=== PATIENT | male | born 1950 | race Caucasian/White ===

== ENCOUNTER 2017-01-24 20:53 | Inpatient (IN) | payer MEDICARE, MEDICAID ==
[~2017-01-24] VITALS: Ht 172.7 cm; Wt 78.9 kg
--- NOTE | 2017-01-24 21:00 | NUR ---
PT BROUGHT BY PRIVATE AMBULANCE FROM [facility] ON 5150 FOR GD AND DTO. PT UPON ARRIVAL A/OX3 CALM AND COOPERATIVE AT THIS TIME. NO DISTRESS NOTED
[2017-01-24 21:36] LABS: BASOPHILS % (AUTO) 0.7 % (0.0-2.0); EOSINOPHILS # (AUTO) 0.2 K/uL (0.0-0.7); HEMATOCRIT 32.4 % (36.7-47.1); HEMOGLOBIN 11.3 g/dL (12.5-16.3); LYMPHOCYTES # (AUTO) 1.2 K/uL (20.0-40.0); LYMPHOCYTES % (AUTO) 20.4 % (20.5-51.5); MEAN CORPUSCULAR HEMOGLOBIN 30.9 uug (23.8-33.4); MEAN CORPUSCULAR HGB CONC 35 g/dL (32.5-36.3); MEAN CORPUSCULAR VOLUME 88.9 fL (73.0-96.2); MONOCYTES # (AUTO) 0.8 K/uL (2.0-10.0); MONOCYTES % (AUTO) 12.9 % (0.0-11.0); NEUTROPHILS # (AUTO) 3.7 K/uL (1.8-8.9); PLATELET COUNT (AUTO) 531 K/uL (152-348); RED BLOOD CELL COUNT(AUTO) 3.65 MIL/uL (4.06-5.63); RED CELL DISTRIBUTION WIDTH 12.5 % (12.1-16.2); WHITE BLOOD COUNT (AUTO) 5.9 K/uL (3.6-10.2)
[2017-01-24 21:42] LABS: *BILIRUBIN,URIN NEGATIVE (NEGATIVE); *BLOOD, URINE 1+ (NEGATIVE); *CLARITY,URINE CLEAR (CLEAR); *COLOR,URINE STRAW (YELLOW); *KETONES,URINE NEGATIVE (NEGATIVE); *PROTEIN,URINE TRACE (NEGATIVE); *UROBILINOGEN,URINE 0.2 E.U./dl (NORMAL); LEUKOCYTE ESTERASE ,URINE 1+ (NEGATIVE); NITRITE, URINE NEGATIVE (NEGATIVE); UGLUCOSE NEGATIVE (NEGATIVE)
--- NOTE | 2017-01-24 21:51 | NUR ---
[facility] SERVILLANCE OBTAIN AND SENT TO LAB. BELONGING LIST COMPLETED
[2017-01-24 21:53] LABS: ETHANOL < 3 MG/DL (0-0)
[2017-01-24 21:54] LABS: CALCIUM 8.6 mg/dL (8.5-10.1); CARBON DIOXIDE 28 mmol/L (21-32); CHLORIDE 95 mmol/L (98-107); CREATININE 1.2 mg/dL (0.6-1.3); GFR 61 mL/min (>60); GLUCOSE 104 mg/dL (74-106); SODIUM SERUM 131 mmol/L (136-145); UREA NITROGEN, BLOOD 17 mg/dL (7-18)
[2017-01-24 21:56] LABS: *AMPHETAMINE, URINE NEGATIVE (NEGATIVE); *BARBITURATE, URINE NEGATIVE (NEGATIVE); *CANNABINOID, URINE NEGATIVE (NEGATIVE); *COCCAINE, URINE NEGATIVE (NEGATIVE); *OPIATE, URINE NEGATIVE (NEGATIVE); *PHENCYCLIDINE SCREEN,URINE NEGATIVE (NEGATIVE)
[2017-01-24 21:58] LABS: ALANINE AMINOTRANSFERASE 42 U/L (16-63); ALBUMIN 3.1 g/dL (3.4-5.0); ALKALINE PHOSPHATASE 164 U/L (50-136); ASPARTATE AMINOTRANSFERASE 29 U/L (15-37); BILIRUBIN,DIRECT 0.1 mg/dL (0.0-0.2); BILIRUBIN,TOTAL 0.2 mg/dL (0.2-1.0); TOTAL PROTEIN, SERUM 7.9 g/dL (6.4-8.2)
[2017-01-24 22:01] LABS: ACETAMINOPHEN < 2.0 ug/mL (10-30); BACTERIA,URINE MODERATE /HPF (NONE SEEN)
--- NOTE | 2017-01-24 22:10 | NUR ---
MEDICALLY CLEARED BY DR CORTEZ
[2017-01-24] MEDS ORDERED: IBUPROFEN 600 MG TABLET PO ONE (22:15)
[2017-01-24] MEDS ORDERED: CIPROFLOXACIN HCL 250 MG TABLET PO ONE (22:15)
[2017-01-24 23:10] VITALS: BP 181/104
--- NOTE | 2017-01-24 23:10 | NUR ---
TRANSFERED TO MHU VIA WHEELCHAIR WITH NO DISTRESS NOTED
[2017-01-24] MEDS ORDERED: MAG HYDROX/AL HYDROX/SIMETH 30 ML LIQUID UDC PO PRN (23:30)
[2017-01-24] MEDS ORDERED: TEMAZEPAM 7.5 MG CAPSULE PO PRN (23:30)
[2017-01-24] MEDS ORDERED: MAGNESIUM HYDROXIDE 30 ML LIQUID UDC PO PRN (23:30)
[2017-01-24] MEDS ORDERED: LEVE500T9 PO (23:44)
[2017-01-24] MEDS ORDERED: SENN8.6T6 PO (23:44)
[2017-01-24] MEDS ORDERED: ARIP15TA2 PO (23:44)
[2017-01-24] MEDS ORDERED: BISA5TAB13 RC (23:44)
[2017-01-24] MEDS ORDERED: DONE5TAB34 PO (23:44)
[2017-01-24] MEDS ORDERED: AMLO5TAB2 PO (23:44)
[2017-01-24] MEDS ORDERED: LACT10SO7 PO (23:44)
[2017-01-24] MEDS ORDERED: NEOM500T PO (23:44)
[2017-01-24] MEDS ORDERED: LATA2.5D7 EACHEYE (23:44)
[2017-01-24] MEDS ORDERED: CLON0.1T PO (23:44)
[2017-01-24] MEDS ORDERED: ATEN25TA PO (23:44)
[2017-01-24] MEDS ORDERED: NA P133E RC (23:44)
[2017-01-24] MEDS ORDERED: PHEN100C4 PO ×2 (23:44)
[2017-01-24] MEDS ORDERED: FAMO-132 PO (23:44)
[2017-01-24] MEDS ORDERED: DOCU-25 PO (23:44)
[2017-01-24] MEDS ORDERED: OXYB5TAB11 PO (23:44)
[2017-01-24] MEDS ORDERED: METH5TAB6 PO (23:44)
[2017-01-24] MEDS ORDERED: ACET325T53 PO (23:44)
[2017-01-25] MEDS ORDERED: LORAZEPAM 1 MG TABLET ONE (00:04)
[2017-01-25] MEDS ORDERED: TEMAZEPAM 15 MG CAPSULE ONE (00:04)
[2017-01-25] MEDS: LORAZEPAM 1 MG TABLET PO PRN ×2 (00:47→21:17)
[2017-01-25] MEDS ORDERED: CLONIDINE HCL 0.1 MG TABLET PO PRN ×2 (07:00→10:00)
--- NOTE | 2017-01-25 07:00 | NUR ---
GPS/ADMITTING NURSING NOTE: PATIENT BROUGHT IN VIA WHEELCHAIR BY ER STAFF NURSE. ADMITTED TO MHU ON A 5152 FOR DANGER TO OTHERS AND GRAVELY DISABLED. ACCORDING TO THE [facility] CALLED FOR AN EVALUATION BECAUSE PATIENT WAS AGGRESSIVE TOWARDS STAFF AND OTHER RESIDENTS. UPON ADMISSION PATIENT PRESENTED ALERT, ORIENTED TO NAME AND PLACE. PATIENT APPEARED TO BE COOPERATIVE HOWEVER REFUSED TO SIGN ADMISSION PAPERWORK AND/OR ANSWER INTERVIEW QUESTIONS. PATIENT'S APPEARANCE OBSERVED TO BE DISHEVELED AND UNKEMPT PATIENT WAS COOPERATIVE AND SHOWERED AT WHICH TIME PATIENT WAS ORIENTED TO UNIT AND SUBSEQUENTLY HIS ROOM. PATIENT IS UNDER THE CARE OF DR. MERAZ, AND DR. ANDERSON WHOM WERE NOTIFIED, ORDERS OBTAINED AND CARRIED OUT. PATIENT REQUESTED PRN FOR ANXIETY AND INSOMNIA, ADMINISTERED ORDERED WITH EFFECTIVE OUTCOME. 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 ORDER FOR PRN HTN GIVEN, PATIENT HAS A HISTORY OF HYPERTENSION. MEDICAL HISTORY ALSO INCLUDE, SEIZURE DISORDER. FOLLOW PLAN OF CARE ACCORDINGLY.
[2017-01-25 07:30] VITALS: BP 142/69
[2017-01-25] MEDS ORDERED: LACTULOSE 20 G/30 ML LIQUID UDC PO SCH (10:00)
[2017-01-25] MEDS: PHENYTOIN SODIUM EXTENDED 100 MG CAPSULE.SA PO SCH ×3 (10:00→21:16)
[2017-01-25] MEDS: METHIMAZOLE 5 MG TABLET PO SCH ×2 (10:00→17:39)
[2017-01-25] MEDS: ACETAMINOPHEN 325 MG TABLET PO PRN ×2 (10:28→21:17)
[2017-01-25] MEDS: FAMOTIDINE 20 MG TABLET PO SCH (10:28)
[2017-01-25] MEDS: OXYBUTYNIN CHLORIDE 5 MG TABLET PO SCH ×2 (10:28→17:36)
[2017-01-25] MEDS: LEVETIRACETAM 500 MG TABLET PO SCH ×2 (10:29→17:36)
[2017-01-25] MEDS: AMLODIPINE 5 MG TABLET PO SCH ×2 (10:29→17:36)
[2017-01-25] MEDS: LEVOFLOXACIN 500 MG TABLET PO SCH (10:29)
[2017-01-25] MEDS: DOCUSATE SODIUM 100 MG CAPSULE PO SCH ×2 (10:29→17:36)
[2017-01-25] MEDS: LACTULOSE 20 G/30 ML LIQUID UDC PO SCH ×3 (12:39→21:18)
[2017-01-25] MEDS: ARIPIPRAZOLE 10 MG TABLET PO SCH ×2 (12:40→17:37)
[2017-01-25 16:00] VITALS: BP 152/97
[2017-01-25] MEDS: LATANOPROST OPHT DROP 2.5 ML BOTTLE EACHEYE SCH ×2 (18:11→21:18)
[2017-01-25 20:49] VITALS: BP 188/94
[2017-01-25] MEDS: ATENOLOL 25 MG TABLET PO SCH (21:17)
[2017-01-25] MEDS: SENNOSIDES 1 TABLET PO SCH (21:17)
[2017-01-25] MEDS: NEOMYCIN SULFATE 500 MG TABLET PO SCH (21:24)
--- NOTE | 2017-01-25 22:57 | NUR ---
NSG/GPS PATIENT FIRST OBSERVED ON UNIT WITH BRIGHT AFFECT. PATIENT ALERT, ORIENTED TO NAME. PATIENT IS PLEASANT ON APPROACH HOWEVER REQUIRES REALITY ORIENTATION, PATIENT ALSO MUMBLES WHEN HE SPEAKS TO STAFF, THOUGHT CONTENT INCONGRUENT WITH REALITY BASED THINKING. IE: "I REALLY NEED THE DOCTOR TO DECREASE MY ATIVAN FROM 10MG TO 5 MG". PATIENT DISPLAYS DISORGANIZED THOUGHTS. OTHERWISE NO BEHAVIOR EXHIBITED AT THIS TIME. WILL CONTINUE TO MONITOR WELL PROVIDE A SAFE ENVIRONMENT. PATIENT'S B/P 188/94, HS MEDICATION ADMINISTERED, BLOOD PRESSURE RECHECKED 151/87 WILL CONTINUE TO MONITOR VITAL SIGNS Q SHIFT AND NEEDED.
[2017-01-26 07:30] VITALS: BP 141/77
[2017-01-26 07:41] LABS: THYROID STIMULATING HORMONE 2.505 mIU/mL (0.358-3.740)
[2017-01-26 07:53] LABS: BASOPHILS % (AUTO) 0.4 % (0.0-2.0); EOSINOPHILS # (AUTO) 0.2 K/uL (0.0-0.7); EOSINOPHILS % (AUTO) 2.9 % (0.0-7.0); HEMOGLOBIN 12.4 g/dL (12.5-16.3); LYMPHOCYTES # (AUTO) 1.1 K/uL (20.0-40.0); MEAN CORPUSCULAR HEMOGLOBIN 30.8 uug (23.8-33.4); MEAN CORPUSCULAR HGB CONC 34 g/dL (32.5-36.3); MONOCYTES # (AUTO) 0.6 K/uL (2.0-10.0); MONOCYTES % (AUTO) 8.9 % (0.0-11.0); NEUTROPHILS # (AUTO) 4.7 K/uL (1.8-8.9); NEUTROPHILS % (AUTO) 71.8 % (38.5-71.5); PLATELET COUNT (AUTO) 538 K/uL (152-348); RED BLOOD CELL COUNT(AUTO) 4.03 MIL/uL (4.06-5.63); RED CELL DISTRIBUTION WIDTH 12.7 % (12.1-16.2); WHITE BLOOD COUNT (AUTO) 6.6 K/uL (3.6-10.2)
[2017-01-26 08:10] LABS: HEMATOCRIT 36.2 % (36.7-47.1)
[2017-01-26 09:07] LABS: ALBUMIN 3.2 g/dL (3.4-5.0); BILIRUBIN,TOTAL 0.2 mg/dL (0.2-1.0); CALCIUM 9.2 mg/dL (8.5-10.1); PHOSPHOROUS 4.3 mg/dL (2.5-4.9); POTASSIUM 4.4 mmol/L (3.5-5.1); TOTAL PROTEIN, SERUM 8.2 g/dL (6.4-8.2)
[2017-01-26] MEDS: LEVETIRACETAM 500 MG TABLET PO SCH ×2 (09:09→17:36)
[2017-01-26] MEDS: FAMOTIDINE 20 MG TABLET PO SCH (09:09)
[2017-01-26] MEDS: AMLODIPINE 5 MG TABLET PO SCH ×2 (09:09→17:36)
[2017-01-26] MEDS: PHENYTOIN SODIUM EXTENDED 100 MG CAPSULE.SA PO SCH ×2 (09:09→20:36)
[2017-01-26] MEDS: DOCUSATE SODIUM 100 MG CAPSULE PO SCH ×2 (09:09→17:36)
[2017-01-26] MEDS: METHIMAZOLE 5 MG TABLET PO SCH ×2 (09:10→17:39)
[2017-01-26] MEDS: NEOMYCIN SULFATE 500 MG TABLET PO SCH (09:10)
[2017-01-26] MEDS: ARIPIPRAZOLE 10 MG TABLET PO SCH ×2 (09:10→17:37)
[2017-01-26] MEDS: LACTULOSE 20 G/30 ML LIQUID UDC PO SCH ×4 (09:10→20:45)
[2017-01-26] MEDS: OXYBUTYNIN CHLORIDE 5 MG TABLET PO SCH ×2 (09:10→17:37)
[2017-01-26] MEDS: LEVOFLOXACIN 500 MG TABLET PO SCH (09:13)
[2017-01-26] MEDS: ACETAMINOPHEN 325 MG TABLET PO PRN ×2 (09:45→17:46)
[2017-01-26 16:00] VITALS: BP 161/91
[2017-01-26] MEDS: LATANOPROST OPHT DROP 2.5 ML BOTTLE EACHEYE SCH (20:36)
[2017-01-26] MEDS: ATORVASTATIN 10 MG TABLET PO SCH (20:36)
[2017-01-26] MEDS: ATENOLOL 25 MG TABLET PO SCH (20:37)
[2017-01-26] MEDS: SENNOSIDES 1 TABLET PO SCH (20:45)
[2017-01-26 21:03] VITALS: BP 168/94
[2017-01-27] MEDS: ACETAMINOPHEN 325 MG TABLET PO PRN ×4 (01:15→21:50)
[2017-01-27 07:30] VITALS: BP 149/86
[2017-01-27] MEDS: LEVETIRACETAM 500 MG TABLET PO SCH ×2 (08:53→17:48)
[2017-01-27] MEDS: LACTULOSE 20 G/30 ML LIQUID UDC PO SCH ×4 (08:53→21:40)
[2017-01-27] MEDS: ARIPIPRAZOLE 10 MG TABLET PO SCH ×2 (08:53→17:48)
[2017-01-27] MEDS: DOCUSATE SODIUM 100 MG CAPSULE PO SCH ×2 (08:53→17:48)
[2017-01-27] MEDS: PHENYTOIN SODIUM EXTENDED 100 MG CAPSULE.SA PO SCH ×2 (08:53→21:38)
[2017-01-27] MEDS: OXYBUTYNIN CHLORIDE 5 MG TABLET PO SCH ×2 (08:54→17:48)
[2017-01-27] MEDS: AMLODIPINE 5 MG TABLET PO SCH ×2 (08:54→17:48)
[2017-01-27] MEDS: FAMOTIDINE 20 MG TABLET PO SCH (08:54)
[2017-01-27] MEDS: METHIMAZOLE 5 MG TABLET PO SCH ×2 (08:55→17:49)
[2017-01-27] MEDS: LEVOFLOXACIN 500 MG TABLET PO SCH (09:02)
--- NOTE | 2017-01-27 13:56 | NUR ---
Initial discharge plan: LEVI spoke with pt regarding initial discharge plan.He reported that he would like to return to [facility].However,[facility] reported that the pt would not be allowed to return.[facility] reported that they would refer the pt to [facility] whom would send someone to evaluate the pt.LEVI will speak to pt's public guardian [Mahsa Carpenter, ] to explore if she agrees with the plan.LEVI will speak to MD, patient, and pt's public guardian to ensure an appropriate discharge plan is created.LEVI will form a safe and proper discharge plan.
[2017-01-27 15:39] VITALS: BP 139/80
--- NOTE | 2017-01-27 17:08 | NUR ---
Reviewed psychosocial done by Krishna Bravo. Addendum: 01/27/17 at 1708 by GUSTAVO SIMS Amended: Links added.
[2017-01-27 20:42] VITALS: BP 143/89
[2017-01-27] MEDS: LATANOPROST OPHT DROP 2.5 ML BOTTLE EACHEYE SCH (21:38)
[2017-01-27] MEDS: ATORVASTATIN 10 MG TABLET PO SCH (21:39)
[2017-01-27] MEDS: SENNOSIDES 1 TABLET PO SCH (21:39)
[2017-01-27] MEDS: ATENOLOL 25 MG TABLET PO SCH (21:39)
[2017-01-27] MEDS: TEMAZEPAM 15 MG CAPSULE PO PRN (21:50)
--- NOTE | 2017-01-27 22:00 | NUR ---
received to care, lying in bed, isolative, but pleasant , upon approach. no interactions noted with peers, but is able to make his needs known, to staff. PRN restoril was given at 2150, at his request. as of 2199, he remains awake, lying in bed. bedtime snack given, no distress noted. will continue to monitor closely.
--- NOTE | 2017-01-27 22:40 | NUR ---
appears to be asleep. no distress noted.
[2017-01-28] MEDS: ACETAMINOPHEN 325 MG TABLET PO PRN ×2 (03:40→12:36)
--- NOTE | 2017-01-28 06:00 | NUR ---
SLEPT 7.5 HOURS.
[2017-01-28 07:45] VITALS: BP 139/78
[2017-01-28] MEDS: LACTULOSE 20 G/30 ML LIQUID UDC PO SCH ×4 (08:03→20:04)
[2017-01-28] MEDS: DOCUSATE SODIUM 100 MG CAPSULE PO SCH ×2 (08:12→17:06)
[2017-01-28] MEDS: ARIPIPRAZOLE 10 MG TABLET PO SCH ×2 (08:12→17:06)
[2017-01-28] MEDS: PHENYTOIN SODIUM EXTENDED 100 MG CAPSULE.SA PO SCH ×2 (08:13→20:05)
[2017-01-28] MEDS: AMLODIPINE 5 MG TABLET PO SCH ×2 (08:13→17:09)
[2017-01-28] MEDS: OXYBUTYNIN CHLORIDE 5 MG TABLET PO SCH ×2 (08:13→17:06)
[2017-01-28] MEDS: LEVETIRACETAM 500 MG TABLET PO SCH ×2 (08:13→17:06)
[2017-01-28] MEDS: FAMOTIDINE 20 MG TABLET PO SCH (08:13)
[2017-01-28] MEDS: METHIMAZOLE 5 MG TABLET PO SCH ×2 (08:15→17:08)
[2017-01-28] MEDS: LEVOFLOXACIN 500 MG TABLET PO SCH (09:40)
[2017-01-28] MEDS: SENNOSIDES 1 TABLET PO SCH (20:05)
[2017-01-28] MEDS: ATORVASTATIN 10 MG TABLET PO SCH (20:05)
[2017-01-28] MEDS: ATENOLOL 25 MG TABLET PO SCH (20:06)
[2017-01-28 20:22] VITALS: BP 155/91
[2017-01-28] MEDS: LATANOPROST OPHT DROP 2.5 ML BOTTLE EACHEYE SCH (20:22)
--- NOTE | 2017-01-28 22:00 | NUR ---
received to care, watching tv in the activity room, isolative with peers, but pleasant, upon approach. compliant with medications, and staff direction. no agitation or aggression, noted. as of 2200, he appears to be asleep. no distress noted.will continue to monitor closely.
[2017-01-29] MEDS: TEMAZEPAM 15 MG CAPSULE PO PRN ×2 (00:07→23:57)
--- NOTE | 2017-01-29 00:07 | NUR ---
pt is now awake. PRN restoril, and a snack was given, at his request. he is now back, in bed. no distress noted. will continue to monitor closely.
--- NOTE | 2017-01-29 01:00 | NUR ---
appears to be asleep.
[2017-01-29] MEDS: ACETAMINOPHEN 325 MG TABLET PO PRN ×4 (01:28→19:50)
--- NOTE | 2017-01-29 06:00 | NUR ---
slept 4.25 hours, total.
[2017-01-29 07:30] VITALS: BP 128/81
[2017-01-29] MEDS: ARIPIPRAZOLE 10 MG TABLET PO SCH (08:16)
[2017-01-29] MEDS: LACTULOSE 20 G/30 ML LIQUID UDC PO SCH ×4 (08:16→20:20)
[2017-01-29] MEDS: PHENYTOIN SODIUM EXTENDED 100 MG CAPSULE.SA PO SCH ×2 (08:17→20:09)
[2017-01-29] MEDS: FAMOTIDINE 20 MG TABLET PO SCH (08:17)
[2017-01-29] MEDS: AMLODIPINE 5 MG TABLET PO SCH ×2 (08:17→17:05)
[2017-01-29] MEDS: OXYBUTYNIN CHLORIDE 5 MG TABLET PO SCH ×2 (08:17→17:05)
[2017-01-29] MEDS: LEVETIRACETAM 500 MG TABLET PO SCH ×2 (08:17→17:05)
[2017-01-29] MEDS: DOCUSATE SODIUM 100 MG CAPSULE PO SCH ×2 (08:17→17:05)
[2017-01-29] MEDS: METHIMAZOLE 5 MG TABLET PO SCH ×2 (08:17→17:06)
[2017-01-29] MEDS: LEVOFLOXACIN 500 MG TABLET PO SCH (09:06)
[2017-01-29 16:00] VITALS: BP 161/78
[2017-01-29 18:44] VITALS: BP 135/74
[2017-01-29 20:02] VITALS: BP 145/68
[2017-01-29] MEDS: SENNOSIDES 1 TABLET PO SCH (20:09)
[2017-01-29] MEDS: ATORVASTATIN 10 MG TABLET PO SCH (20:09)
[2017-01-29] MEDS: ATENOLOL 25 MG TABLET PO SCH (20:11)
[2017-01-29] MEDS: LORAZEPAM 1 MG TABLET PO PRN (20:19)
[2017-01-29] MEDS: LATANOPROST OPHT DROP 2.5 ML BOTTLE EACHEYE SCH (20:21)
[2017-01-29] MEDS ORDERED: ARIPIPRAZOLE 2 MG TABLET PO SCH (21:00)
[2017-01-29] MEDS ORDERED: ARIPIPRAZOLE 10 MG TABLET PO SCH (21:00)
--- NOTE | 2017-01-29 22:00 | NUR ---
received to care, visible on unit, pacing, talking to self, slamming doors, and appearing paranoid, stating that "[place] is going to fall", and "[place] going [place]". no interactions with peers. DENNY roberts was given at 2019, and, by 2099, he was much calmer, and smiling. as of 2199, he is in bed, awake. no distress noted. will continue to monitor closely.
--- NOTE | 2017-01-29 23:57 | NUR ---
remains awake, intermittently pacing, and requesting food frequently, difficult to redirect. PRN restoril was given, at this time. will continue to monitor closely.
--- NOTE | 2017-01-30 01:13 | NUR ---
appears to be asleep. no distress noted.
[2017-01-30] MEDS: ACETAMINOPHEN 325 MG TABLET PO PRN ×4 (03:46→20:36)
--- NOTE | 2017-01-30 06:00 | NUR ---
slept 5 hours. assisted with AM care, and shower. no distress noted.
[2017-01-30 07:57] VITALS: BP 147/83
[2017-01-30] MEDS ORDERED: ARIPIPRAZOLE 10 MG TABLET PO SCH (09:00)
[2017-01-30] MEDS ORDERED: ARIPIPRAZOLE 5 MG TABLET PO SCH (09:00)
[2017-01-30] MEDS: PHENYTOIN SODIUM EXTENDED 100 MG CAPSULE.SA PO SCH ×2 (09:44→20:18)
[2017-01-30] MEDS: LACTULOSE 20 G/30 ML LIQUID UDC PO SCH ×4 (09:44→20:21)
[2017-01-30] MEDS: LEVETIRACETAM 500 MG TABLET PO SCH ×2 (09:45→17:28)
[2017-01-30] MEDS: AMLODIPINE 5 MG TABLET PO SCH ×2 (09:45→17:28)
[2017-01-30] MEDS: DOCUSATE SODIUM 100 MG CAPSULE PO SCH ×2 (09:45→17:28)
[2017-01-30] MEDS: FAMOTIDINE 20 MG TABLET PO SCH (09:45)
[2017-01-30] MEDS: METHIMAZOLE 5 MG TABLET PO SCH ×2 (09:45→17:29)
[2017-01-30] MEDS: OXYBUTYNIN CHLORIDE 5 MG TABLET PO SCH ×2 (09:45→17:28)
[2017-01-30 14:31] LABS: CALCIUM 8.7 mg/dL (8.5-10.1); CREATININE 1.2 mg/dL (0.6-1.3); POTASSIUM 4.3 mmol/L (3.5-5.1)
[2017-01-30 15:06] VITALS: BP 151/92
[2017-01-30 20:00] VITALS: BP 132/71
[2017-01-30] MEDS: ATORVASTATIN 10 MG TABLET PO SCH (20:18)
[2017-01-30] MEDS: ARIPIPRAZOLE 5 MG TABLET PO SCH (20:19)
[2017-01-30] MEDS: SENNOSIDES 1 TABLET PO SCH (20:19)
[2017-01-30] MEDS: ATENOLOL 25 MG TABLET PO SCH (20:20)
[2017-01-30] MEDS: LATANOPROST OPHT DROP 2.5 ML BOTTLE EACHEYE SCH (20:21)
--- NOTE | 2017-01-30 20:37 | NUR ---
GPS: PATIENT C/O GEN: PAIN. TYLENOL 650 MG PO GIVEN FOR PAIN PER PATIENT REQUESTED.
--- NOTE | 2017-01-30 21:38 | NUR ---
GPS: PATIENT STATED I AM FEELING BETTER NOW. PRN EFFECTIVE.
[2017-01-30] MEDS: TEMAZEPAM 15 MG CAPSULE PO PRN (22:59)
--- NOTE | 2017-01-30 22:59 | NUR ---
GPS: PATIENT C/O INSOMNIA. RESTORIL 15 MG PO GIVEN FOR SLEEP.
--- NOTE | 2017-01-30 23:59 | NUR ---
GPS: PATIENT STILL AWAKE.PRN NOT EFFECTIVE.
--- NOTE | 2017-01-31 06:08 | NUR ---
GPS: REMAIN COOPERATIVE WITH MEDS AND CARE. TYLENOL GIVEN FOR PAIN.RESTORIL GIVEN FOR SLEEP. SLEPT 4 HRS THROUGH THE NIGHT AFTER RESTORIL GIVEN.NO AGITATION NOTED THIS TIME. CONTINUE PLAN OF CARE.
[2017-01-31 08:00] VITALS: BP 163/84
[2017-01-31 08:19] LABS: BASOPHILS % (AUTO) 0.5 % (0.0-2.0); EOSINOPHILS # (AUTO) 0.3 K/uL (0.0-0.7); EOSINOPHILS % (AUTO) 3.9 % (0.0-7.0); HEMATOCRIT 34.3 % (36.7-47.1); HEMOGLOBIN 11.6 g/dL (12.5-16.3); LYMPHOCYTES # (AUTO) 1.1 K/uL (20.0-40.0); MEAN CORPUSCULAR HEMOGLOBIN 30.3 uug (23.8-33.4); MEAN CORPUSCULAR HGB CONC 34 g/dL (32.5-36.3); MEAN CORPUSCULAR VOLUME 89.6 fL (73.0-96.2); MONOCYTES # (AUTO) 0.7 K/uL (2.0-10.0); MONOCYTES % (AUTO) 9.9 % (0.0-11.0); NEUTROPHILS # (AUTO) 4.6 K/uL (1.8-8.9); NEUTROPHILS % (AUTO) 69.7 % (38.5-71.5); PLATELET COUNT (AUTO) 507 K/uL (152-348); RED BLOOD CELL COUNT(AUTO) 3.82 MIL/uL (4.06-5.63); RED CELL DISTRIBUTION WIDTH 12.6 % (12.1-16.2); WHITE BLOOD COUNT (AUTO) 6.7 K/uL (3.6-10.2)
[2017-01-31] MEDS: ARIPIPRAZOLE 5 MG TABLET PO SCH ×2 (08:39→20:35)
[2017-01-31] MEDS: LACTULOSE 20 G/30 ML LIQUID UDC PO SCH ×4 (08:40→20:35)
[2017-01-31] MEDS: OXYBUTYNIN CHLORIDE 5 MG TABLET PO SCH ×2 (08:40→17:39)
[2017-01-31] MEDS: DOCUSATE SODIUM 100 MG CAPSULE PO SCH ×2 (08:40→17:39)
[2017-01-31] MEDS: LEVETIRACETAM 500 MG TABLET PO SCH ×2 (08:40→17:39)
[2017-01-31] MEDS: METHIMAZOLE 5 MG TABLET PO SCH ×2 (08:40→17:39)
[2017-01-31] MEDS: PHENYTOIN SODIUM EXTENDED 100 MG CAPSULE.SA PO SCH ×2 (08:40→20:35)
[2017-01-31] MEDS: FAMOTIDINE 20 MG TABLET PO SCH (08:40)
[2017-01-31] MEDS: AMLODIPINE 5 MG TABLET PO SCH ×2 (08:40→17:39)
[2017-01-31] MEDS: ACETAMINOPHEN 325 MG TABLET PO PRN ×2 (09:45→17:44)
[2017-01-31] MEDS: LORAZEPAM 1 MG TABLET PO PRN (14:27)
[2017-01-31 16:00] VITALS: BP 147/88
[2017-01-31 20:10] VITALS: BP 122/69
[2017-01-31] MEDS: SENNOSIDES 1 TABLET PO SCH (20:35)
[2017-01-31] MEDS: ATORVASTATIN 10 MG TABLET PO SCH (20:35)
[2017-01-31] MEDS: LATANOPROST OPHT DROP 2.5 ML BOTTLE EACHEYE SCH (20:36)
[2017-01-31] MEDS: ATENOLOL 25 MG TABLET PO SCH (20:37)
[2017-01-31] MEDS: TEMAZEPAM 15 MG CAPSULE PO PRN (23:53)
[2017-02-01] MEDS: ACETAMINOPHEN 325 MG TABLET PO PRN ×2 (02:06→10:57)
--- NOTE | 2017-02-01 05:51 | NUR ---
GPS/NSG Patient first observed in room lying down, appeared asleep. Patient compliant with medication. Requested prn for insomnia with ineffective outcome. Patient pacing hallways through out the night. Patient compliant when redirected however appears to have bizarre behavior. Patient also requested a prn for a pain (headache) 04/14 with effective outcome 11/15. Will continue to monitor for safety. Last observed awake on unit.
[2017-02-01 08:00] VITALS: BP 151/83
[2017-02-01] MEDS: ARIPIPRAZOLE 5 MG TABLET PO SCH ×2 (08:39→20:49)
[2017-02-01] MEDS: LEVETIRACETAM 500 MG TABLET PO SCH ×2 (08:39→18:08)
[2017-02-01] MEDS: FAMOTIDINE 20 MG TABLET PO SCH (08:39)
[2017-02-01] MEDS: AMLODIPINE 5 MG TABLET PO SCH ×2 (08:41→18:08)
[2017-02-01] MEDS: DOCUSATE SODIUM 100 MG CAPSULE PO SCH ×2 (08:42→17:00)
[2017-02-01] MEDS: OXYBUTYNIN CHLORIDE 5 MG TABLET PO SCH ×2 (08:42→18:09)
[2017-02-01] MEDS: PHENYTOIN SODIUM EXTENDED 100 MG CAPSULE.SA PO SCH ×2 (08:42→20:49)
[2017-02-01] MEDS: LACTULOSE 20 G/30 ML LIQUID UDC PO SCH ×4 (08:44→20:49)
[2017-02-01] MEDS: METHIMAZOLE 5 MG TABLET PO SCH ×2 (09:00→17:00)
[2017-02-01 16:11] VITALS: BP 153/85
[2017-02-01 20:30] VITALS: BP 163/88
[2017-02-01] MEDS: SENNOSIDES 1 TABLET PO SCH (20:49)
[2017-02-01] MEDS: ATORVASTATIN 10 MG TABLET PO SCH (20:49)
[2017-02-01] MEDS: ATENOLOL 25 MG TABLET PO SCH (20:52)
[2017-02-01] MEDS: LATANOPROST OPHT DROP 2.5 ML BOTTLE EACHEYE SCH (20:53)
[2017-02-02] MEDS: ACETAMINOPHEN 325 MG TABLET PO PRN ×5 (02:30→20:15)
[2017-02-02] MEDS: TEMAZEPAM 15 MG CAPSULE PO PRN ×2 (02:34→22:48)
[2017-02-02 07:30] VITALS: BP 145/82
[2017-02-02] MEDS: DOCUSATE SODIUM 100 MG CAPSULE PO SCH ×2 (08:51→17:25)
[2017-02-02] MEDS: AMLODIPINE 5 MG TABLET PO SCH ×2 (08:51→17:25)
[2017-02-02] MEDS: OXYBUTYNIN CHLORIDE 5 MG TABLET PO SCH ×2 (08:52→17:24)
[2017-02-02] MEDS: LEVETIRACETAM 500 MG TABLET PO SCH ×2 (08:52→17:24)
[2017-02-02] MEDS: FAMOTIDINE 20 MG TABLET PO SCH (08:52)
[2017-02-02] MEDS: PHENYTOIN SODIUM EXTENDED 100 MG CAPSULE.SA PO SCH ×2 (08:52→20:06)
[2017-02-02] MEDS: ARIPIPRAZOLE 5 MG TABLET PO SCH ×2 (08:52→20:05)
[2017-02-02] MEDS: METHIMAZOLE 5 MG TABLET PO SCH ×2 (08:59→17:25)
[2017-02-02] MEDS: LACTULOSE 20 G/30 ML LIQUID UDC PO SCH ×4 (09:57→20:07)
[2017-02-02 15:27] VITALS: BP 137/82
[2017-02-02] MEDS: ATORVASTATIN 10 MG TABLET PO SCH (20:05)
[2017-02-02] MEDS: ATENOLOL 25 MG TABLET PO SCH (20:06)
[2017-02-02] MEDS: SENNOSIDES 1 TABLET PO SCH (20:06)
[2017-02-02] MEDS: LATANOPROST OPHT DROP 2.5 ML BOTTLE EACHEYE SCH (20:08)
[2017-02-02 20:09] VITALS: BP 146/74
--- NOTE | 2017-02-02 21:59 | NUR ---
PATIENT VISIBLE ON UNIT. COMPLIANT WITH MEDICATION, NO AGGRESSIVE OR COMBATIVE BEHAVIOR NOTED WILL CONTINUE TO MONITOR. PATIENT MUMBLES TO SELF. PATIENT STATED HAVING A HEADACHE, TYLENOL GIVEN ORDERED.
[2017-02-03] MEDS: LORAZEPAM 1 MG TABLET PO PRN (02:51)
[2017-02-03] MEDS: ACETAMINOPHEN 325 MG TABLET PO PRN (06:49)
[2017-02-03 07:30] VITALS: BP 158/85
[2017-02-03] MEDS: PHENYTOIN SODIUM EXTENDED 100 MG CAPSULE.SA PO SCH (08:37)
[2017-02-03] MEDS: LEVETIRACETAM 500 MG TABLET PO SCH (08:37)
[2017-02-03] MEDS: FAMOTIDINE 20 MG TABLET PO SCH (08:37)
[2017-02-03] MEDS: ARIPIPRAZOLE 5 MG TABLET PO SCH (08:37)
[2017-02-03] MEDS: LACTULOSE 20 G/30 ML LIQUID UDC PO SCH ×2 (08:37→12:06)
[2017-02-03 08:38] VITALS: BP 158/85
[2017-02-03] MEDS: OXYBUTYNIN CHLORIDE 5 MG TABLET PO SCH (08:38)
[2017-02-03] MEDS: DOCUSATE SODIUM 100 MG CAPSULE PO SCH (08:38)
[2017-02-03] MEDS: AMLODIPINE 5 MG TABLET PO SCH (08:38)
[2017-02-03] MEDS: METHIMAZOLE 5 MG TABLET PO SCH (08:40)
--- NOTE | 2017-02-03 09:11 | NUR ---
DC Note: Patient will be discharged today to [facility] [[address] [place] [address], [id number]; [phone]] via ambulance at 12:30 pm. Spoke with Brianne at the facility who stated she would accept the patient today. LEVI called patients LPS Conservator, Mahsa Willkristiedebby [phone] and left voicemail including discharge plans. LEVI spoke with Mahsa on 02/02/17 who stated she agreed with patient being discharged to either [facility] or [facility]. Patient is aware and agreeable with discharge plans. Patient will follow-up with (Bag Bundler) and (Psychiatrist) at the facility.
--- NOTE | 2017-02-03 13:01 | NUR ---
GPS: Nursing Notes: Discharge Notes: Patient awake and responding to his name, following staff directions, compliant with his medications, denies any SI/HI,denies any AH/VH, denies any pain or discomfort, denies any SOB, ambulatory, cooperative, minimal assistance with ADL's, discharge to [facility] at [address] [place] [address] [phone] , Dr. Story (chef french) and Dr. Jaramillo (psychiatrist) will continue with aftercare at the facility, report given to Justus RN slot floor supervisor, transported to facility via ambulance.
== END 2017-02-03 13:00 | DRG 885 ==
LOC: ER 21:01 → GPS 23:09
PROVIDERS: ADMIT Psychiatry & Neurology Psychiatry; ATTEND Internal Medicine
DX: F29 Unspecified psychosis not due to a substance or known physiological condition (principal); F02.80 Dementia in other diseases classified elsewhere, unspecified severity, without behavioral disturbance, psychotic disturbance, mood disturbance, and anxiety; N39.0 Urinary tract infection, site not specified; E87.1 Hypo-osmolality and hyponatremia; D64.9 Anemia, unspecified; E78.5 Hyperlipidemia, unspecified; J44.9 Chronic obstructive pulmonary disease, unspecified; D75.89 Other specified diseases of blood and blood-forming organs; E88.09 Other disorders of plasma-protein metabolism, not elsewhere classified; F17.210 Nicotine dependence, cigarettes, uncomplicated; G30.9 Alzheimer's disease, unspecified; G40.909 Epilepsy, unspecified, not intractable, without status epilepticus; I10 Essential (primary) hypertension; Z79.899 Other long term (current) drug therapy; Z87.440 Personal history of urinary (tract) infections; E05.90 Thyrotoxicosis, unspecified without thyrotoxic crisis or storm; Z88.0 Allergy status to penicillin; Z88.2 Allergy status to sulfonamides; H40.9 Unspecified glaucoma; F25.9 Schizoaffective disorder, unspecified
CPT/HCPCS: 36415; 80307; 83735; 84100; 84443; 85025; 87086; 93005; A4663; G0480-TC; G6040-TC; J8499